=== PATIENT | female | born 1945 | race Caucasian/White ===

== ENCOUNTER 2018-08-01 07:11 | Day surgery (SDC) | payer MEDICARE, OTHER ==
[~2018-08-01] VITALS: Ht 160 cm; Wt 80.7 kg
[~2018-08-01 07:11] MED LIST: CLOB.05TO; DIPATR PO; ETAN50I; Flonase 0.05% N16 GM; GLIM2 PO; LEVFLO500 PO; LEVSOD100 PO; MELO7.5 PO; METF500 PO; ONDA4 PO; OXYACE7.5T PO; TAMS.4ER PO
[2018-08-01] MEDS ORDERED: INSULANPEN SC (07:59)
== END 2018-08-01 09:33 | disposition home or self-care (01) ==
LOC: ORSCSDS 07:11
PROVIDERS: Internal Medicine Gastroenterology
PROC: 0DJ08ZZ Inspection of Upper Intestinal Tract, Via Natural or Artificial Opening Endoscopic (ICD-10-PCS; principal; 2018-08-01 08:45)
DX: R13.10 Dysphagia, unspecified (principal); Q39.4 Esophageal web; I10 Essential (primary) hypertension; E11.9 Type 2 diabetes mellitus without complications; E03.9 Hypothyroidism, unspecified; Z86.010 Personal history of colon polyps; K58.0 Irritable bowel syndrome with diarrhea; Z79.82 Long term (current) use of aspirin; Z79.84 Long term (current) use of oral hypoglycemic drugs; Z79.4 Long term (current) use of insulin; Z79.899 Other long term (current) drug therapy
CPT/HCPCS: 82947; J0330; J1980; J2405; J7120

== ENCOUNTER 2018-08-02 08:25 | Day surgery (SDC) | payer MEDICARE, OTHER ==
[~2018-08-02] VITALS: Ht 160 cm; Wt 80.5 kg
[~2018-08-02 08:25] MED LIST changes: +INSULANPEN SC
--- NOTE | 2018-08-02 11:45 | NUR ---
08/02/18 1145 Alanis Melara UNABLE TO CHART PACU ASSESSMENTS/ VITALS IN PACU SCREEN DUE TO UNAVAILABLE OPTIONS R/T AN ENDOSCOPY PT SET UP. PLEASE SEE SDU FOR ASSESSMENTS, VITALS. 1123 PACU SCORE 7/10. ORAL CLEAR, THICK MUCUS SUCTIONED 1126 PT AWAKE, DROWSY ON RA PACU SCORE 8/10. PT COUGHED CLEAR SECRETIONS ON HER OWN. 1133 PRIOR TO TRANSFER TO SDU PACU SCORE 9/10 LUNGS CTA. PT C/O 5/10 THROAT PAIN. VSS. TOLERATING PO FLUIDS WELL.
== END 2018-08-02 12:10 | disposition home or self-care (01) ==
LOC: ORSCSDS 08:25
PROVIDERS: Internal Medicine Gastroenterology
PROC: 0DB68ZX Excision of Stomach, Via Natural or Artificial Opening Endoscopic, Diagnostic (ICD-10-PCS; principal; 2018-08-02 09:45)
PROC: 0D758ZZ Dilation of Esophagus, Via Natural or Artificial Opening Endoscopic (ICD-10-PCS; principal; 2018-08-02 09:45)
DX: K22.2 Esophageal obstruction (principal); R13.14 Dysphagia, pharyngoesophageal phase; K31.7 Polyp of stomach and duodenum; E11.9 Type 2 diabetes mellitus without complications; I10 Essential (primary) hypertension; E03.9 Hypothyroidism, unspecified; Z79.4 Long term (current) use of insulin; Z79.899 Other long term (current) drug therapy
CPT/HCPCS: 82947; 88305; 88342; C1726; J0330; J2250; J3010

== ENCOUNTER 2018-09-06 11:52 | Day surgery (SDC) | payer MEDICARE, OTHER ==
[~2018-09-06] VITALS: Ht 160 cm; Wt 80.1 kg
--- NOTE | 2018-09-06 14:04 | NUR ---
09/06/18 1404 Meredith Edmond DILATED WITH SAVERY 10 ALSO.
== END 2018-09-06 14:47 | disposition home or self-care (01) ==
LOC: ORSCSDS 11:52
PROVIDERS: Internal Medicine Gastroenterology
PROC: 0D758ZZ Dilation of Esophagus, Via Natural or Artificial Opening Endoscopic (ICD-10-PCS; principal; 2018-09-06 13:15)
DX: K22.2 Esophageal obstruction (principal); R13.10 Dysphagia, unspecified; E11.9 Type 2 diabetes mellitus without complications; E03.9 Hypothyroidism, unspecified; Z79.4 Long term (current) use of insulin; Z79.899 Other long term (current) drug therapy
CPT/HCPCS: 82947; C1726; J2704; J7120

== ENCOUNTER 2018-10-02 12:55 | Day surgery (SDC) | payer MEDICARE, OTHER ==
[~2018-10-02] VITALS: Ht 162.6 cm; Wt 80.1 kg
[2018-10-02] MEDS ORDERED: FLUC150A PO (13:37)
--- NOTE | 2018-10-02 13:43 | NUR ---
10/02/18 1343 Nupur Morocho V PT RESTING IN BED, SIDE RAILS IN PLACE, CALL LIGHT WITHIN REACH, VSS. PT TEACHING COMPLETED. PT DENIES PAIN, DISCOMFORT, AND QUESTIONS AT THIS TIME.
== END 2018-10-02 16:29 | disposition home or self-care (01) ==
LOC: ORSCSDS 12:55
PROVIDERS: Ophthalmology
PROC: 081Y3J3 Bypass Left Lacrimal Duct to Nasal Cavity with Synthetic Substitute, Percutaneous Approach (ICD-10-PCS; principal; 2018-10-02 14:15)
DX: H04.552 Acquired stenosis of left nasolacrimal duct (principal); T85.698S Other mechanical complication of other specified internal prosthetic devices, implants and grafts, sequela; I10 Essential (primary) hypertension; E11.9 Type 2 diabetes mellitus without complications; Z79.899 Other long term (current) drug therapy; Z79.4 Long term (current) use of insulin
CPT/HCPCS: 82947; J2001; J2250; J2405; J3010

== ENCOUNTER → 2020-03-25 | Outpatient (CLI) | payer MEDICARE, OTHER ==
[~2020-03-25] MED LIST changes: +FLUC150A PO; +FLUT.05NI; +Loratadine10 MG; +MULTI-VITAMIN1 EAC2; +OLOPATADINE HC2.5 ML
== END | disposition home or self-care (01) ==
LOC: LAB EV 09:14 → LAB SHORT 09:14
DX: N39.0 Urinary tract infection, site not specified (principal)
CPT/HCPCS: 87077; 87086; 87186

== ENCOUNTER → 2020-04-08 | Outpatient (CLI) | payer MEDICARE, OTHER | END | disposition home or self-care (01) | LOC: LAB SHORT 18:22 → LAB 18:22 | DX: R30.0 Dysuria (principal) | CPT/HCPCS: 87077; 87086; 87186 ==

== ENCOUNTER → 2020-04-20 | Outpatient (CLI) | payer MEDICARE, OTHER | END | disposition home or self-care (01) | LOC: LAB SHORT 13:31 → LAB 13:31 | DX: R39.9 Unspecified symptoms and signs involving the genitourinary system (principal) | CPT/HCPCS: 87077; 87086; 87186 ==

== ENCOUNTER → 2021-02-23 | Outpatient (CLI) | payer MEDICARE, OTHER | END | disposition home or self-care (01) | LOC: LAB SHORT 10:10 → LAB 10:10 | DX: N39.0 Urinary tract infection, site not specified (principal) | CPT/HCPCS: 87077; 87086; 87186 ==

== ENCOUNTER 2021-04-06 12:34 | Day surgery (SDC) | payer MEDICARE, OTHER ==
[~2021-04-06] VITALS: Ht 160 cm; Wt 78.9 kg
[2021-04-06] MEDS ORDERED: CLOBETASOL EMOL15 G1 (13:18)
[2021-04-06] MEDS ORDERED: Pataday2.5 ML (13:19)
[2021-04-06] MEDS ORDERED: BASAGLAR K100 UNIT/3 (13:22)
--- NOTE | 2021-04-06 13:36 | NUR ---
04/06/21 1336 Melinda Solis PT COMFORTABLE IN BED, NO QUESTIONS OR CONCERNS AT THIS TIME. PT GIVEN CALL LIGHT. BED IN LOWEST POSITION. SIDE RAILS UP.
== END 2021-04-06 16:15 | disposition home or self-care (01) ==
LOC: ORSCSDS 12:34
PROVIDERS: Ophthalmology
PROC: 081X0J3 Bypass Right Lacrimal Duct to Nasal Cavity with Synthetic Substitute, Open Approach (ICD-10-PCS; principal; 2021-04-06 14:00)
DX: H04.551 Acquired stenosis of right nasolacrimal duct (principal); I10 Essential (primary) hypertension; E11.9 Type 2 diabetes mellitus without complications; E03.9 Hypothyroidism, unspecified; Z79.4 Long term (current) use of insulin; Z79.899 Other long term (current) drug therapy
CPT/HCPCS: 82947; A9270; J1100; J2405; J2704; J3010

== ENCOUNTER → 2021-09-26 | Outpatient (CLI) | payer MEDICARE, OTHER ==
[~2021-09-26] MED LIST changes: +ASPI81CH PO; +BASAGLAR K100 UNIT/3 SC; +CLOBETASOL EMOL15 G1 TOP; +Diflucan150 MG PO; +ENBREL50 MG/1 M2 SC; -ETAN50I; +HYDROCODON-ACET15 ML PO; +Loratadine10 MG PO; -MULTI-VITAMIN1 EAC2; +MULTI-VITAMIN1 EAC2 PO; +Pataday2.5 ML; +SULTRIL5 PO
== END | disposition home or self-care (01) ==
LOC: LAB SHORT 10:54 → LAB 10:54
DX: R30.0 Dysuria (principal)
CPT/HCPCS: 87077; 87086; 87186

== ENCOUNTER 2021-10-05 13:12 | Day surgery (SDC) | payer MEDICARE, OTHER ==
[~2021-10-05] VITALS: Ht 160 cm; Wt 72.3 kg
--- NOTE | 2021-10-05 15:13 | NUR ---
10/05/21 1513 Meredith Edmond BUPIVACAINE 0.5% 1:200,000 MIXED WITH LIDOCAINE 2% 1:1 FOR INJECTION AT OPSITE BY DR DE GUZMAN. 4 MLS TOTAL INJECTED.
== END 2021-10-05 16:23 | disposition home or self-care (01) ==
LOC: ORSCSDS 13:12
PROVIDERS: Ophthalmology
PROC: 08SR0ZZ Reposition Left Lower Eyelid, Open Approach (ICD-10-PCS; principal; 2021-10-05 14:30)
PROC: 081X0J3 Bypass Right Lacrimal Duct to Nasal Cavity with Synthetic Substitute, Open Approach (ICD-10-PCS; principal; 2021-10-05 14:30)
DX: H04.201 Unspecified epiphora, right side (principal); H04.551 Acquired stenosis of right nasolacrimal duct; H02.005 Unspecified entropion of left lower eyelid; E11.9 Type 2 diabetes mellitus without complications; E03.9 Hypothyroidism, unspecified; Z79.899 Other long term (current) drug therapy; Z79.4 Long term (current) use of insulin
CPT/HCPCS: 82947; A9270; J0171; J1100; J2250; J2405; J2704; J3010; J7040

== ENCOUNTER → 2021-12-20 | Outpatient (CLI) | payer MEDICARE, OTHER ==
[2021-12-20 11:16] LABS: Microalb/Creat Ratio UR, Rand Unable to Calculate mg/g (0.000-30.000); Microalbumin, Random Urine <5.000 mg/L (0.000-20.000)
== END | disposition home or self-care (01) ==
LOC: LAB 09:50 → LAB SHORT 09:50
PROVIDERS: Physician Assistant Medical
DX: E11.9 Type 2 diabetes mellitus without complications (principal)
CPT/HCPCS: 82043; 82570

== ENCOUNTER 2022-04-05 11:28 | Day surgery (SDC) | payer MEDICARE, OTHER ==
[~2022-04-05] VITALS: Ht 162.6 cm; Wt 74.6 kg
--- NOTE | 2022-04-05 12:07 | NUR ---
04/05/22 1207 UMA HEMPHILL GLASSES AND PARTIAL UNDER BED WITH REST OF PATIENT BELONGINGS.
--- NOTE | 2022-04-05 13:46 | NUR ---
04/05/22 1346 Meredith Edmond PLEDGETS SOAKED IN AFRIN FOR PACKING PER ORDER.
== END 2022-04-05 15:12 | disposition home or self-care (01) ==
LOC: ORSCSDS 11:28
PROVIDERS: Ophthalmology
PROC: 087X0DZ Dilation of Right Lacrimal Duct with Intraluminal Device, Open Approach (ICD-10-PCS; principal; 2022-04-05 13:00)
PROC: 087Y0DZ Dilation of Left Lacrimal Duct with Intraluminal Device, Open Approach (ICD-10-PCS; principal; 2022-04-05 13:00)
DX: H04.223 Epiphora due to insufficient drainage, bilateral (principal); H04.553 Acquired stenosis of bilateral nasolacrimal duct; E11.9 Type 2 diabetes mellitus without complications; E03.9 Hypothyroidism, unspecified; Z79.4 Long term (current) use of insulin; Z79.84 Long term (current) use of oral hypoglycemic drugs; Z79.899 Other long term (current) drug therapy
CPT/HCPCS: 82947; A9270; J2250; J2704; J2795; J3010; J7040

== ENCOUNTER → 2022-09-11 | Outpatient (CLI) | payer MEDICARE, OTHER ==
[2022-09-11 12:11] LABS: BASOPHILS ABSOLUTE AUTO 0.07 K/mm3 (0.00-0.23); BASOPHILS PERCENT AUTO 1 % (0-2); EOSINOPHILS ABSOLUTE AUTO 0.11 K/mm3 (0.00-0.68); EOSINOPHILS PERCENT AUTO 1 % (0-6); Hematocrit 38.9 % (33.0-51.0); Hemoglobin 13.3 g/dL (11.5-16.0); IMMATURE GRAN ABSOLUTE AUTO 0.04 K/mm3 (0.00-0.10); IMMATURE GRAN PERCENT AUTO 1 % (0-1); LYMPHOCYTES ABSOLUTE AUTO 2.04 K/mm3 (0.84-5.20); LYMPHOCYTES PERCENT AUTO 24 % (21-46); MONOCYTES ABSOLUTE AUTO 0.57 K/mm3 (0.16-1.47); MONOCYTES PERCENT AUTO 7 % (4-13); Mean Corpuscular HGB 33.1 pg (26.0-34.0); Mean Corpuscular HGB Conc 34.2 g/dL (31.5-36.5); Mean Corpuscular Volume 97 fL (80-100); Mean Platelet Volume 9.4 fL (9.1-12.4); NEUTROPHILS ABSOLUTE AUTO 5.63 K/mm3 (1.96-9.15); NEUTROPHILS PERCENT AUTO 67 % (41-73); Platelet Count 276 K/mm3 (150-400); RDW Standard Deviation 46.5 fL (35.1-46.3); Red Blood Cell Count 4.02 M/mm3 (3.80-5.20); White Blood Cell Count 8.46 K/mm3 (4.00-11.30)
[2022-09-11 12:23] LABS: Albumin, Blood 3.4 g/dL (3.4-5.0); Albumin/Globulin Ratio 0.8 (0.8-1.8); Bilirubin, Total 0.9 mg/dL (0.1-1.0); Bun/Creatinine Ratio 11.6 (12.0-20.0); Calcium, Blood 9.6 mg/dL (8.5-10.1); Creatinine, Blood 1.29 mg/dL (0.40-1.00); Globulin, Blood 4.1 g/dL (2.2-4.0); Potassium, Blood 4.4 mmol/L (3.5-5.5); Total Protein, Blood 7.5 g/dL (6.4-8.2)
== END | disposition home or self-care (01) ==
LOC: LAB SHORT 12:07 → LAB 12:07
PROVIDERS: Physician Assistant
DX: R10.9 Unspecified abdominal pain (principal)
CPT/HCPCS: 80053; 82150; 83690; 85025

== ENCOUNTER 2022-12-06 11:52 | Day surgery (SDC) | payer MEDICARE, OTHER ==
[~2022-12-06] VITALS: Ht 160 cm; Wt 78.4 kg
--- NOTE | 2022-12-06 12:42 | NUR ---
12/06/22 1242 RODRIGO BEATTY. PRE-OP TEACHING COMPLETED. PT a&O X4, COOPERATIVE WITH CARE.
--- NOTE | 2022-12-06 13:58 | NUR ---
12/06/[address] TUBES
--- NOTE | 2022-12-06 14:52 | NUR ---
12/06/22 4136 Danni Mendoza PT STATES THAT SHE IS EXPERIENCING NAUSEA. GAVE PT AN EMESIS BAG AND ALCOHOL PAD TO HELP WITH NAUSEA.
[2022-12-06 15:11] VITALS: BP 120/81
== END 2022-12-06 15:38 | disposition home or self-care (01) ==
LOC: ORSCSDS 11:52
PROVIDERS: Ophthalmology
PROC: 081X0J3 Bypass Right Lacrimal Duct to Nasal Cavity with Synthetic Substitute, Open Approach (ICD-10-PCS; principal; 2022-12-06 13:00)
PROC: 081Y0J3 Bypass Left Lacrimal Duct to Nasal Cavity with Synthetic Substitute, Open Approach (ICD-10-PCS; principal; 2022-12-06 13:00)
DX: H04.223 Epiphora due to insufficient drainage, bilateral (principal); H04.553 Acquired stenosis of bilateral nasolacrimal duct; E11.9 Type 2 diabetes mellitus without complications; E03.9 Hypothyroidism, unspecified; Z79.84 Long term (current) use of oral hypoglycemic drugs; Z79.899 Other long term (current) drug therapy; J44.9 Chronic obstructive pulmonary disease, unspecified; Z79.4 Long term (current) use of insulin
CPT/HCPCS: 82947; A9270; J2704; J2795; J3010

== ENCOUNTER → 2024-02-27 | Outpatient (CLI) | payer MEDICARE, OTHER | LOC: LAB SHORT 09:34 → LAB 09:34 | DX: N39.0 Urinary tract infection, site not specified (principal) | CPT/HCPCS: 87077; 87086; 87186 ==

== ENCOUNTER → 2025-03-05 | Outpatient (CLI) | payer MEDICARE, OTHER ==
[~2025-03-05] MED LIST changes: +ACET500 PO; +CIPR250 PO; +DOCU100 PO; +EUTHYROX50 MCG PO; +FINA5 PO; -LEVSOD100 PO; +LEVSOD75 PO; +MINO2.5 PO; +MUPIROCIN2210; +SILVADENE20 G8 TOP; +TACR1 PO; +TRAM50 PO; +[UNRECOGNIZED DRUG - REMARK] PO
== END ==
LOC: LAB SHORT 11:02 → LAB 11:02
DX: N39.0 Urinary tract infection, site not specified (principal)
CPT/HCPCS: 87077; 87086; 87186

== ENCOUNTER 2025-03-09 08:06 | Day surgery (SDC) | payer MEDICARE, OTHER ==
[2025-02-17 14:19] VITALS: BP 127/75
[~2025-03-09] VITALS: Ht 157.5 cm; Wt 81.4 kg
[2025-03-09] VITALS (11 sets, daily range): BP systolic 87–136; BP diastolic 34–73
[~2025-03-09 08:06] MED LIST changes: -ACET500 PO; +CeFAZolin Sodium 2,000 MG in NS 100 ML IV SCH; +Chlorhexidine Mouth Care 15 ML UDC MT SCH; -DOCU100 PO; +Ropivacaine 0.5% HCl/Pf 123.125 MG,EPINEPHrine HCL 0.25 MG,Ketorolac Tromethamine 15 MG... INFIL SCH; -TRAM50 PO; +Tranexamic Acid 100 ML IV SCH
--- NOTE | 2025-03-09 09:13 | NUR ---
Ambulatory in Day Surgery History, Chart, Medications and Allergies reviewed before start of procedure. Pre-Op teaching done. Pt verbalizes understanding. Patient States Post-Procedure ride home has been arranged.
[2025-03-09] MEDS ORDERED: Clobetasol Prop 0.05% Cream 15 gm TOP PRN (09:45)
[2025-03-09] MEDS ORDERED: FLU VACC TS2025(65UP)/MF59C/PF 45 MCG/0.5 ML SYRINGE IM SCH (09:55)
[2025-03-09] MEDS ORDERED: Ondansetron HCl 2 MG / ML 2ML Vial IV PRN (09:55)
[2025-03-09] MEDS ORDERED: Metoclopramide HCl 5MG / ML 2ML Vial IV PRN (10:00)
[2025-03-09] MEDS ORDERED: Magnesium Hydroxide Conc 10 ML UDC PO PRN (10:00)
[2025-03-09] MEDS ORDERED: FentaNYL Citrate 50 MCG/ML 2 ML Injection IV PRN ×3 (11:10→11:15)
[2025-03-09] MEDS ORDERED: Dexamethasone Sodium Phosphate 4 MG/ML 5ML VIAL IV PRN (11:10)
[2025-03-09] MEDS ORDERED: Phenylephrine HCl 100 MCG/ML-NS 10MLSYR (1MG/10ML) ONE (11:14)
[2025-03-09] MEDS ORDERED: Ondansetron HCl 2 MG / ML 2ML Vial ONE (11:14)
[2025-03-09] MEDS ORDERED: ePHEDrine Sulfate 50 MG/ML 1ML Injection IV PRN (11:15)
[2025-03-09] MEDS ORDERED: Ketorolac Tromethamine 15mg Vial IV SCH (12:00)
--- NOTE | 2025-03-09 12:43 | NUR ---
PT ARRIVED TO UNIT@1210 PT AXO4. VSS. ON RA. SPINAL EFFETS STILL LARGELY IN PALCE - PT UNABLE TO WIGGLE/FEEL TOES/FOOT BUT IS BEGINNING TO HAVE SENSATION IN L THIGH REGION. AQUACEL CDI. TOLERATING PO INTAKE WELL CURRENTLY.
[2025-03-09] MEDS ORDERED: Bupivacaine 0.5% HCl 5 MG/ML 30MLVIAL ONE (13:17)
[2025-03-09] MEDS ORDERED: ACET500 PO (15:35)
[2025-03-09] MEDS ORDERED: DOCU100 PO (15:37)
[2025-03-09] MEDS ORDERED: TRAM50 PO (15:37)
[2025-03-09] MEDS ORDERED: ASPI81CH PO (15:37)
[2025-03-09] MEDS ORDERED: CeFAZolin Sodium 2,000 MG in NS 100 ML IV SCH (18:00)
--- NOTE | 2025-03-09 18:13 | NUR ---
PT DC'D @1810 PT TOLERATED PHYSICAL THERAPY WELL AFTER SPINAL EFFECTS WORE OFF. VOIDED IN BATHROOM. TOLERATED PO INTAKE WELL BUT PT HAD NO DENTURES SO THIS WAS COMPLICATED. PAIN MANAGED WITH PO PAIN MEDS. VSS. DRESSINGS CDI TO Connie ESPINOZA - [place] PROVIDED FOR PT TO TAKE HOME AND CHANGE. IN ROOM FOR DC INSTRUCTIONS - EDUCATION PROVIDED. BELONGINGS PACKED UP. PT WHEELED OUT TO CAR @1809.
[2025-03-10] MEDS ORDERED: MINOXIDIL 2.5 MG PO SCH (09:00)
== END 2025-03-09 18:05 | disposition home or self-care (01) ==
LOC: ORSCMMR 08:06 → ORD 09:30 → ORSCMMR 09:30 → ORD 10:45 → SURS 12:13 → ORSCMMR 18:05
PROVIDERS: Orthopaedic Surgery
PROC: 0SRD0JA Replacement of Left Knee Joint with Synthetic Substitute, Uncemented, Open Approach (ICD-10-PCS; principal; 2025-03-09 10:00)
DX: M17.12 Unilateral primary osteoarthritis, left knee (principal); E11.9 Type 2 diabetes mellitus without complications; E07.9 Disorder of thyroid, unspecified; Z79.899 Other long term (current) drug therapy; Z79.84 Long term (current) use of oral hypoglycemic drugs
CPT/HCPCS: 27447; 0055T; 73560-LT; 82947; 97110; 97116; 97162; 97530; A9270; C1713; C1776; J0166; J0690; J0735; J1885; J2371; J2405; J2704; J2795; J7120